=== PATIENT | male | born 1970 | race Caucasian/White ===

== ENCOUNTER → 2020-11-21 | Day surgery (SDC) | payer OTHER ==
[~2020-11-21] MED LIST: ACETAMINOPHEN500 M1 PO; ASPIRIN325 M1 PO; ATIVAN0.5 MG PO; CITALOPRAM10 MG/5 ML PO; ESOMEPRAZOLE MA40 MG PO; FLEXERIL10 MG PO; MOBIC7.5 MG PO; NORCO 5-325 TA1 EACH PO; PHENERGAN25 M1 PO; TETRACYCLINE H500 MG PO; XARELTO10 MG PO
[2020-11-21 09:55] LABS: HCT 47.6 % (42.0-52.0); HGB 15.9 g/dl (13.2-18.0); MCH 30.4 pg (25.0-31.0); MCHC 33.4 g/dL (32.0-36.0); MPV 10.1 fL (6.0-9.5); RBC 5.23 M/uL (4.70-6.00); RDW 13.1 % (11.5-14.0); WBC 7.6 K/uL (4.0-10.5)
[2020-11-21 10:19] LABS: ALBUMIN 3.4 g/dL (3.4-5.0); BILIRUBIN - TOTAL 0.4 mg/dL (0.2-1.0); BUN/CREAT RATIO (CALC) 23.1 RATIO; CREATININE 0.78 mg/dL (0.67-1.17); GLOBULIN (CALCULATION) 3.4 g/dL; POTASSIUM 4.2 mmol/L (3.5-5.1); TOTAL PROTEIN 6.8 g/dL (6.4-8.2)
== END | disposition home or self-care (01) ==
LOC: FAS 08:54
PROVIDERS: Surgery
DX: K42.0 Umbilical hernia with obstruction, without gangrene (principal); K21.9 Gastro-esophageal reflux disease without esophagitis; L73.2 Hidradenitis suppurativa; G43.909 Migraine, unspecified, not intractable, without status migrainosus; M19.90 Unspecified osteoarthritis, unspecified site; M85.651 Other cyst of bone, right thigh; M85.652 Other cyst of bone, left thigh; Z20.822 Contact with and (suspected) exposure to COVID-19; Z98.890 Other specified postprocedural states; Z90.49 Acquired absence of other specified parts of digestive tract; Z88.5 Allergy status to narcotic agent; Z96.659 Presence of unspecified artificial knee joint; Z98.1 Arthrodesis status
CPT/HCPCS: 36415; 80053; 93005; J1170; J1885; J2250; J2270; J2405; J2704; J3010; J7120

== ENCOUNTER → 2022-02-12 | Day surgery (SDC) | payer OTHER ==
[~2022-02-12] VITALS: Ht 170.2 cm; Wt 113.4 kg
[~2022-02-12] MED LIST changes: +CITALOPRAM HBR20 MG PO; +LORAZEPAM 0.5M0.5 MG PO
[2022-02-12 08:48] LABS: HCT 53.4 % (42.0-52.0); HGB 18.4 g/dl (13.2-18.0); MCH 31.1 pg (25.0-31.0); MCHC 34.5 g/dL (32.0-36.0); MCV 90.4 fL (78.0-100.0); MPV 10.7 fL (6.0-9.5); RBC 5.91 M/uL (4.70-6.00); RDW 13.1 % (11.5-14.0); WBC 12.5 K/uL (4.0-10.5)
[2022-02-12 09:25] LABS: ALBUMIN 3.7 g/dL (3.4-5.0); BILIRUBIN - TOTAL 1.1 mg/dL (0.2-1.0); BUN/CREAT RATIO (CALC) 27.8 RATIO; CREATININE 0.79 mg/dL (0.67-1.17); GLOBULIN (CALCULATION) 3.7 g/dL; POTASSIUM 4.1 mmol/L (3.5-5.1); TOTAL PROTEIN 7.4 g/dL (6.4-8.2)
== END | disposition home or self-care (01) ==
LOC: FAS 07:52
PROVIDERS: Surgery
DX: K42.0 Umbilical hernia with obstruction, without gangrene (principal); K66.0 Peritoneal adhesions (postprocedural) (postinfection); F17.200 Nicotine dependence, unspecified, uncomplicated; Z88.5 Allergy status to narcotic agent; K21.9 Gastro-esophageal reflux disease without esophagitis; F41.9 Anxiety disorder, unspecified; Z79.899 Other long term (current) drug therapy
CPT/HCPCS: 36415; 80053; 93005; C1781; J0690; J2250; J2405; J2704; J2710; J3010; J7120